=== PATIENT | male | born 1995 | race Caucasian/White ===

== ENCOUNTER 2020-12-18 12:50 | Emergency (ER) | payer OTHER ==
--- NOTE | 2020-12-18 14:23 | XRAY Report ---
PROCEDURE: Ribs w/PA Chest RT INDICATIONS: Suspect Rib fx or Spontaneous Pneumo TECHNIQUE: 3 views of the right ribs were acquired, along with a single view chest. COMPARISON: None FINDINGS: Surgical changes and devices: None. Bones and chest wall: No fractures or dislocations. Specifically no displaced rib fractures. No lui picious bony lesions. Overlying soft tissues appear unremarkable. Lungs and pleura: No pleural effusions or pneumothorax. Lungs appear clear. Mediastinum: Mediastinal contours appear normal. Heart size is normal. IMPRESSION: No evidence of an acute cardiopulmonary or osseous abnormality. Reviewed by: Boyd Dove DO on 12/18/2020 1:22 PM [facility] Approved by: Boyd Dove DO on 12/18/2020 1:22 PM [facility] Station ID: [id number]
[2020-12-18] MEDS ORDERED: HYDROcod/ACETAM 5/325 MG TABLET PO STA (15:04)
--- NOTE | 2020-12-18 15:06 | ED Physician Documentation ---
History of Present Illness - Stated complaint Stated Complaint: CP - Chief complaint Chief Complaint: Cardiac - History obtained from History obtained from: Patient - History of Present Illness Pain level max: 8 Pain level now: 6 - Additonal information Additional information: Patient is a 25-year-old male who states that 1 week ago he was playing Frisbee with friends when he collided and injured his sternum as well as the right periorbital area, had a black eye. This is since resolved. Today he was given someone a hug and when they squeezed he now has increasing pain to the sternum again. Worse with movement, breathing. Better with rest. Took Aleve without relief Review of Systems Constitutional: denies: Fever, Chills Respiratory: denies: Cough, Wheezing GI: denies: Abdominal Pain, Vomiting, Diarrhea : denies: Dysuria Skin: denies: Rash Musculoskeletal: denies: Neck pain, Back pain Neurologic: denies: Headache PD PAST MEDICAL HISTORY - Past Medical History Past Medical History: No - Past Surgical History Past Surgical History: No - Present Medications Home Medications: Ambulatory Orders Medication Instructions Recorded Confirmed HYDROcod/ACETAM 5/325 [[place] 5/325] 1 - 2 ea PO Q6H PRN #12 tablet 12/18/20 - Allergies Allergies/Adverse Reactions: Allergies Allergy/AdvReac Type Severity Reaction Status Date / Time No Known Drug Allergies Allergy Verified 12/18/20 13:08 - Living Situation Living Arrangement: reports: At home PD ED PE NORMAL - Vitals Vital signs reviewed: Yes - General General: Alert and oriented X 3, No acute distress, Well developed/nourished - HEENT HEENT: PERRL, Moist mucous membranes - Neck Neck: Supple, no meningeal sign - Cardiac Cardiac: RRR, No murmur, Strong equal pulses - Respiratory Respiratory: No respiratory distress, Clear bilaterally - Abdomen Abdomen: Soft, Non tender, Non distended - Derm Derm: Warm and dry - Neuro Neuro: Alert and oriented X 3 - Psych Psych: Normal mood, Normal affect - Free text exam Free text exam: Tender to palpation over the mid sternum. No ecchymosis or swelling. No crepitus. Otherwise benign exam of the chest wall Results - Vitals Vitals: Vital Signs - 24 hr 12/18/20 12/18/20 12/18/20 12:59 15:09 16:46 Temperature 36.6 C 36.6 C Heart Rate 66 90 80 Respiratory 15 19 16 Rate Blood Pressure 136/84 H 130/86 H 113/78 O2 Saturation 99 97 96 Oxygen O2 Source Room air - EKG (time done) 1301 Rate: Rate (enter#) (82) Rhythm: NSR [place]: Normal Intervals: Normal DC QRS: Normal Ischemia: ST elevation c/w repol - Rads (name of study) Sternum x-ray Radiology: Prelim report reviewed, EMP read contemporaneously, See rad report (No acute abnormality) Ribs with PA chest x-ray Radiology: Prelim report reviewed, EMP read contemporaneously, See rad report (No acute abnormality) PD MEDICAL DECISION MAKING - ED course Complexity details: reviewed results, re-evaluated patient, considered differential, d/w patient ED course: Patient with what appears to be a sternum contusion. Patient is well-appearing, nontoxic. Afebrile. No hypoxia. No pneumothorax. No hemothorax. Pain well controlled in the emergency department. Patient counseled regarding signs and symptoms for which I believe and urgent re-evaluation would be necessary. Patient with good understanding of and agreement to plan and is comfortable going home at this time This document was made in part using voice recognition software. While efforts are made to proofread this document, sound alike and grammatical errors may occu r. Departure - Departure Disposition: 01 Home, Self Care Clinical Impression: Contusion of sternum Qualifiers: Encounter type: initial encounter Qualified Code(s): S20.219A - Contusion of unspecified front wall of thorax, initial encounter Condition: Good Instructions: ED Contusion Chest Wall Follow-Up: your,doctor in 1 week [Other] Prescriptions: HYDROcod/ACETAM 5/325 [[place] 5/325] 1 - 2 ea PO Q6H PRN #12 tablet PRN Reason: Pain Comments: Your x-ray does not show any acute abnormality today. You have likely bruised your sternum, you could alternatively have a small crack that is not visible on x-ray. Will prescribe pain medication for home. Follow-up with your doctor for further care. Do not drink alcohol or drive while on narcotic pain medicine. Note that many narcotic pain relievers also contain tylenol/acetaminophen. Please ensure that your total dose of acetaminophen from all sources does not exceed 3 grams (3000mg) per day. You may constipated on this medication, take a stool softener such as "Colace" twice a day while you are on it. Also recommend a ubwn-skl-zhijjhn laxative such as senna or MiraLAX any day that you do not have a bowel movement. If you received narcotic pain medication in the emergency department, do not drive or operate machinery for the next 24 hours. Discharge Date/Time: 12/18/20 16:50
--- NOTE | 2020-12-18 15:45 | XRAY Report ---
PROCEDURE: Sternum INDICATIONS: sternum injury TECHNIQUE: 2 views of the sternum acquired. COMPARISON: Same day radiographs FINDINGS: Bones: No fractures or dislocations. No suspicious bony lesions. Soft tissues: Retrosternal soft tissues appear normal. IMPRESSION: No acute osseous abnormality. Reviewed by: Boyd Dove DO on 12/18/2020 2:44 PM [facility] Approved by: Boyd Dove DO on 12/18/2020 2:44 PM [facility] Station ID: [id number]
[2020-12-18 16:48] VITALS: BP 113/78
== END 2020-12-18 16:50 | disposition home or self-care (01) ==
LOC: ED 12:50
DX: S20.219A Contusion of unspecified front wall of thorax, initial encounter (principal); W51.XXXA Accidental striking against or bumped into by another person, initial encounter; Y93.74 Activity, frisbee
CPT/HCPCS: 71101; 71120; 93005; 99283; 99284; A9270